=== PATIENT | male | born 1995 | race African-American/Black ===

== ENCOUNTER 2021-11-22 11:13 | Emergency (ER) | payer OTHER ==
[~2021-11-22] VITALS: Ht 177.8 cm; Wt 68.0 kg
[2021-11-22 11:16] VITALS: BP 106/64
[2021-11-22] MEDS ORDERED: ACETAMINOPHEN 325MG TABLET PO ONE (12:00)
[2021-11-22] MEDS ORDERED: CLIN-116 MT (13:40)
[2021-11-22] MEDS ORDERED: IBUP-2029 MT (13:40)
[2021-11-22] MEDS ORDERED: DOXY100C5 MT (13:40)
[2021-11-22] MEDS ORDERED: CEFTRIAXONE SODIUM 1 G/VIAL IM ONE (13:45)
[2021-11-22] MEDS ORDERED: DOXYCYCLINE HYCLATE 100MG CAPSULE PO ONE (13:45)
[2021-11-22] MEDS ORDERED: TETANUS, DIPHTHERIA, PERTUSSIS VAC/PF 0.5ML (>10YR OLD) IM ONE (13:45)
[2021-11-24 04:08] LABS: NEISSERIA GONORRHOEAE NAA Negative (Negative)
== END 2021-11-22 14:03 | disposition home or self-care (01) ==
LOC: ER 11:13
DX: S00.83XA Contusion of other part of head, initial encounter (principal); A54.9 Gonococcal infection, unspecified; Y07.03 Male partner, perpetrator of maltreatment and neglect; S61.452A Open bite of left hand, initial encounter; Y04.1XXA Assault by human bite, initial encounter; Y04.2XXA Assault by strike against or bumped into by another person, initial encounter; Y93.89 Activity, other specified; Y92.89 Other specified places as the place of occurrence of the external cause
CPT/HCPCS: 71100; 73130; 87491; 87591; 90471; 90715; 96372; 99284; J0696